=== PATIENT | female | born 1985 | race Two or more races ===

== ENCOUNTER 2021-02-21 09:39 | Emergency (ER) | payer OTHER ==
[~2021-02-21] VITALS: Ht 170.2 cm; Wt 80.7 kg
[2021-02-21 09:59] VITALS: BP 126/73
== END 2021-02-21 10:52 | disposition home or self-care (01) ==
LOC: ER 09:39
DX: H61.22 Impacted cerumen, left ear (principal)

== ENCOUNTER 2021-02-23 14:10 | Emergency (ER) | payer OTHER ==
[~2021-02-23] VITALS: Ht 154.9 cm; Wt 81.6 kg
[2021-02-23 14:25] VITALS: BP 20/71
== END 2021-02-23 17:05 | disposition home or self-care (01) ==
LOC: ER 14:10
DX: H66.92 Otitis media, unspecified, left ear (principal)

== ENCOUNTER 2023-09-01 10:14 | Emergency (ER) | payer OTHER ==
[~2023-09-01] VITALS: Ht 154.9 cm; Wt 88.5 kg
[2023-09-01 10:57] VITALS: BP 140/78; PULSE 84; RESP 17; O2SAT 98
[2023-09-01] MEDS ORDERED: CIPRSUS OT (11:40)
[2023-09-01] MEDS ORDERED: MECL1TAB42 PO (11:40)
[2023-09-01 12:06] LABS: Urine Bacteria FEW /hpf (None Seen); Urine Blood 3+ /uL (Negative); Urine Clarity Clear (Clear); Urine Color Colorless (Yellow); Urine Protein, UAD Negative (Negative); Urine Specific Gravity 1.004 (1.001-1.035); Urine Urobilinogen Normal (Negative); Urine WBC <1 /hpf (0 - 5)
== END 2023-09-01 11:44 | disposition home or self-care (01) ==
LOC: ER 10:14
DX: R42 Dizziness and giddiness (principal); H60.92 Unspecified otitis externa, left ear; Z98.890 Other specified postprocedural states
CPT/HCPCS: 70450; 81001